=== PATIENT | male | born 1960 | race Caucasian/White ===

== ENCOUNTER 2017-08-06 19:29 | Emergency (ER) | payer SELFPAY ==
[~2017-08-06] VITALS: Ht 190.5 cm; Wt 138.0 kg
[2017-08-06 19:35] VITALS: BP 118/66; PULSE 71; RESP 16; O2SAT 97
[2017-08-06 19:38] VITALS: TEMP 97.6
[2017-08-06] MEDS ORDERED: SODIUM CHLORIDE 0.9% FLUSH 10 ML FLUSH IVF PRN (19:45)
[2017-08-06] MEDS ORDERED: OMEP40CA2 PO (19:46)
[2017-08-06] MEDS ORDERED: MULT1TAB PO (19:46)
[2017-08-06] MEDS ORDERED: FOLI800T PO (19:46)
[2017-08-06] MEDS ORDERED: THIA100T16 PO (19:46)
[2017-08-06] MEDS ORDERED: AMLO5TAB2 PO (19:46)
[2017-08-06] MEDS ORDERED: VITA250T3 PO (19:46)
[2017-08-06] MEDS ORDERED: SODIUM CHLOR 0.9% 1000 ML INJ 1,000 ML IV ONE (20:00)
--- NOTE | 2017-08-06 20:00 | PD ---
HPI Chief Complaint: Syncope/Near-Syncope Time Seen by Provider: 19:43 Travel History International Travel<30 days: No Contact w/Intl Traveler<30days: No Traveled to known affect area: No History of Present Illness HPI While at [place] [employer] [place] with family , apparently patient "passed out" for 5 seconds, witnessed by family, no seizure activity and no postictal. Patient does admit to having a few drinks while he was at the bar with family. Denies any alleviating or aggravating factors. Denies any associated factors such as fever headache photophobia nausea vomiting diarrhea or rash chest pain abdominal pain back pain. PFSH Past Medical History Blood Disorders: No GERD: Yes Hypertension: Yes Tetanus Vaccination: Unknown Influenza Vaccination: No Past Surgical History Thoracic Surgery: Yes (Tumor left lung) Social History Alcohol Use: Yes (Social) Tobacco Use: No Substance Use: No Allergies-Medications (Allergen,Severity, Reaction): Coded Allergies: No Known Allergies (Verified Allergy, Severe, 08/06/17) NKA Uncoded Allergies: nka (Allergy, Unknown, 03/01/03) Reported Meds & Prescriptions Reported Meds & Active Scripts Active Reported Chlorthalidone 25 Mg Tab 25 Mg PO DAILY Montelukast (Montelukast Sodium) 10 Mg Tab 10 Mg PO HS Metoprolol Succinate ER 24 HR (Metoprolol Succinate) 50 Mg Tab 50 Mg PO DAILY Advair Hfa 12 GM Inh (Fluticasone-Salmeterol 12 GM Inh) 230-21 Mcg/Act Aer 2 Puff INH BID Losartan-Hydrochlorothiazide 100-25 Mg Tab 1 Tab PO DAILY Omeprazole 40 Mg Cap 40 Mg PO BID Folic Acid 0.8 Mg Tab 800 Mcg PO DAILY Vitamin B-1 (Thiamine Mononitrate) 100 Mg Tab 100 Mg PO DAILY Vitamin C (Ascorbic Acid) 250 Mg Tab 500 Mg PO DAILY Centrum Silver Adult 50+ (Multiple Vitamins W/ Minerals) 0.4 Mg-300 Mcg-250 Mcg Tab 1 Tab PO DAILY Amlodipine (Amlodipine Besylate) 5 Mg Tab 5 Mg PO DAILY Review of Systems Except as stated in HPI: all other systems reviewed are Neg General / Constitutional: No: Fever Eyes: No: Visual changes HENT: No: Headaches Cardiovascular: No: Chest Pain or Discomfort Respiratory: No: Shortness of Breath Gastrointestinal: No: Abdominal Pain Genitourinary: No: Dysuria Musculoskeletal: No: Pain Skin: No Rash Neurologic: Positive: Syncope Psychiatric: No: Depression Endocrine: No: Polydipsia Hematologic/Lymphatic: No: Easy Bruising Physical Exam Narrative GENERAL: pleasant elderly male, smells of etoh on breath SKIN: Warm and dry. HEAD: Atraumatic. Normocephalic. EYES: Pupils equal and round. No scleral icterus. No injection or drainage. ENT: No nasal bleeding or discharge. Mucous membranes pink and moist. NECK: Trachea midline. No JVD. CARDIOVASCULAR: Regular rate and rhythm. RESPIRATORY: No accessory muscle use. Clear to auscultation. Breath sounds equal bilaterally. GASTROINTESTINAL: Abdomen soft, non-tender, nondistended. MUSCULOSKELETAL: Extremities without clubbing, cyanosis, or edema. No obvious deformities. NEUROLOGICAL: Awake and alert. No obvious cranial nerve deficits. Motor grossly within normal limits. Five out of 5 muscle strength in the arms and legs. Normal speech. PSYCHIATRIC: Appropriate mood and affect; insight and judgment normal. Data Data Last Documented VS Vital Signs Date Time Temp Pulse Resp B/P (MAP) Pulse Ox O2 Delivery O2 Flow Rate FiO2 08/06/17 19:38 97.6 08/06/17 19:35 71 16 118/66 (83) 97 Orders Orders Electrocardiogram (08/06/17 19:43) Complete Blood Count With Diff (08/06/17 19:43) Comprehensive Metabolic Panel (08/06/17 19:43) B-Type Natriuretic Peptide (08/06/17 19:43) Troponin I (08/06/17 19:43) Act Partial Throm Time (Ptt) (08/06/17 19:43) Prothrombin Time / Inr (Pt) (08/06/17 19:43) Urinalysis - C+S If Indicated (08/06/17 19:43) Ecg Monitoring (08/06/17 19:43) Iv Access Insert/Monitor (08/06/17 19:43) Oximetry (08/06/17 19:43) Sodium Chloride 0.9% Flush (Ns Flush) (08/06/17 19:45) Drug Screen, Random Urine (08/06/17 19:43) Alcohol (Ethanol) (08/06/17 19:43) Ct Brain W/O Iv Contrast(Rout) (08/06/17 19:43) Sodium Chlor 0.9% 1000 Ml Inj (Ns 1000 M (08/06/17 20:00) Labs Laboratory Tests Test 08/06/17 19:50 08/06/17 20:15 White Blood Count 6.8 TH/MM3 Red Blood Count 3.99 MIL/MM3 Hemoglobin 12.9 GM/DL Hematocrit 38.5 % Mean Corpuscular Volume 96.5 FL Mean Corpuscular Hemoglobin 32.5 PG Mean Corpuscular Hemoglobin Concent 33.6 % Red Cell Distribution Width 13.4 % Platelet Count 235 TH/MM3 Mean Platelet Volume 8.3 FL Neutrophils (%) (Auto) 54.2 % Lymphocytes (%) (Auto) 30.7 % Monocytes (%) (Auto) 13.0 % Eosinophils (%) (Auto) 1.0 % Basophils (%) (Auto) 1.1 % Neutrophils # (Auto) 3.7 TH/MM3 Lymphocytes # (Auto) 2.1 TH/MM3 Monocytes # (Auto) 0.9 TH/MM3 Eosinophils # (Auto) 0.1 TH/MM3 Basophils # (Auto) 0.1 TH/MM3 CBC Comment DIFF FINAL Differential Comment Prothrombin Time 10.3 SEC Prothromb Time International Ratio 1.0 RATIO Activated Partial Thromboplast Time 19.8 SEC Blood Urea Nitrogen 31 MG/DL Creatinine 1.72 MG/DL Random Glucose 143 MG/DL Total Protein 7.5 GM/DL Albumin 3.7 GM/DL Calcium Level 8.2 MG/DL Alkaline Phosphatase 92 U/L Aspartate Amino Transf (AST/SGOT) 43 U/L Alanine Aminotransferase (ALT/SGPT) 31 U/L Total Bilirubin 0.3 MG/DL Sodium Level 138 MEQ/L Potassium Level 4.0 MEQ/L Chloride Level 99 MEQ/L Carbon Dioxide Level 27.1 MEQ/L Anion Gap 12 MEQ/L Estimat Glomerular Filtration Rate 41 ML/MIN Troponin I LESS THAN 0.02 NG/ML B-Type Natriuretic Peptide 31 PG/ML Ethyl Alcohol Level 311 MG/DL Urine Color YELLOW Urine Turbidity CLEAR Urine pH 6.0 Urine Specific [place] 1.016 Urine Protein 30 mg/dL Urine Glucose (UA) NEG mg/dL Urine Ketones NEG mg/dL Urine Occult Blood NEG Urine Nitrite NEG Urine Bilirubin NEG Urine Urobilinogen LESS THAN 2.0 MG/DL Urine Leukocyte Esterase NEG Urine RBC 1 /hpf Urine WBC 2 /hpf Urine Squamous Epithelial Cells <1 /hpf Urine Hyaline Casts 11 /lpf Urine Mucus FEW /lpf Microscopic Urinalysis Comment CULT NOT INDICATED Urine Opiates Screen NEG Urine Barbiturates Screen NEG Urine Amphetamines Screen NEG Urine Benzodiazepines Screen NEG Urine Cocaine Screen NEG Urine Cannabinoids Screen NEG MDM Medical Decision Making Medical Screen Exam Complete: Yes Emergency Medical Condition: Yes Medical Record Reviewed: Yes Interpretation(s) nsr , 72, baseline motion artifact, no stemi pattern Differential Diagnosis Alcohol intoxication versus vasovagal syncope versus anemia versus electrolyte abnormalities versus intracranial hemorrhage Narrative Course Patient's CBC shows no leukocytosis no anemia and no thrombocytosis or thrombocytopenia. Regulation profile is within normal limits urinalysis is negative for any evidence of UTI. Toxicology is negative for tox screen however the alcohol level was 311. Complete metabolic profile does show a small amount of prerenal azotemia with BUN of 31 and a creatinine of 1.72 and GFR 41. Patient was given 1 L of normal saline by EMS plus another additional liter by me here in the emergency department. First set of cardiac enzymes negative, beta natruretic peptide negative, lipase and albumin within normal limits..... Patient has been discharged to family, advised to hydrate with water or electrolyte drinks, and to avoid alcohol for the immediate time. Diagnosis Primary Impression: vasovagal syncope Additional Impressions: DEHYDRATION Alcohol intoxication Qualified Codes: F10.920 - Alcohol use, unspecified with intoxication, uncomplicated Patient Instructions: Alcohol Intoxication (DC), Dehydration (ED), General Instructions Disposition: 01 DISCHARGE HOME Condition: Stable Sridhar Genao MD Aug 06, 2017 20:00
[2017-08-06] MEDS ORDERED: LOSA100T2 PO (20:01)
[2017-08-06] MEDS ORDERED: ADVA230A INH (20:13)
[2017-08-06] MEDS ORDERED: MONT10TA4 PO (20:13)
[2017-08-06] MEDS ORDERED: METO1TAB9 PO (20:13)
[2017-08-06] MEDS ORDERED: CHLO25TA2 PO (20:13)
--- NOTE | 2017-08-06 20:19 | RADRPT ---
EXAM DATE/TIME: 08/06/2017 20:02 [facility] COMPARISON: No previous studies available for comparison. INDICATIONS : Syncope episode. RADIATION DOSE: 44.91 CTDIvol (mGy) MEDICAL HISTORY : Hypertension. tumor left lung SURGICAL HISTORY : None. ENCOUNTER: Initial ACUITY: 1 day PAIN SCALE: 0/10 LOCATION: cranial TECHNIQUE: Multiple contiguous axial images were obtained of the head. Using automated exposure control and adj ustment of the mA and/or kV according to patient size, radiation dose was kept as low as reasonably a chievable to obtain optimal diagnostic quality images. DICOM format image data is available electro nically for review and comparison. FINDINGS: There is no evidence for intracranial hemorrhage, mass effect, mass lesions, edema, or extra-axial fl uid collections. The visualized bony structures appear intact. The ventricles are normal size for t he patient's age. There are no signs of acute infarction for technique. CONCLUSION: Unremarkable study. Brigette Eastman MD on August 06, 2017 at 20:16 Board Certified Radiologist. This report was verified electronically.
[2017-08-06 20:39] LABS: AUTOMATED NEUTROPHIL # 3.7 TH/MM3 (1.8-7.7); BASOPHIL # 0.1 TH/MM3 (0-0.2); BASOPHIL % 1.1 % (0.0-2.0); EOSINOPHIL # 0.1 TH/MM3 (0-0.4); HEMATOCRIT 38.5 % (39.0-51.0); HEMOGLOBIN 12.9 GM/DL (13.0-17.0); LYMPH % 30.7 % (9.0-44.0); LYMPHOCYTE # 2.1 TH/MM3 (1.0-4.8); MEAN CELL VOLUME 96.5 FL (80.0-100.0); MEAN CORPUSCULAR HEMOGLOBIN 32.5 PG (27.0-34.0); MEAN CORPUSCULAR HGB CONC 33.6 % (32.0-36.0); MEAN PLATELET VOLUME 8.3 FL (7.0-11.0); MONOCYTE # 0.9 TH/MM3 (0-0.9); NEUT % 54.2 % (16.0-70.0); PLATELET COUNT 235 TH/MM3 (150-450); RED BLOOD COUNT 3.99 MIL/MM3 (4.50-5.90); RED CELL DISTRIBUTION WIDTH 13.4 % (11.6-17.2); WHITE BLOOD COUNT 6.8 TH/MM3 (4.0-11.0)
[2017-08-06 20:54] LABS: ALBUMIN 3.7 GM/DL (3.4-5.0); ALT (GPT) 31 U/L (12-78); AST (GOT) 43 U/L (15-37); BICARBONATE 27.1 MEQ/L (21.0-32.0); BLOOD UREA NITROGEN 31 MG/DL (7-18); CALCIUM 8.2 MG/DL (8.5-10.1); CHLORIDE 99 MEQ/L (98-107); CREATININE 1.72 MG/DL (0.60-1.30); GLOMERULAR FILTRATION RATE 41 ML/MIN (>89); GLUCOSE,RANDOM 143 MG/DL (74-106); PROTHROMBIN TIME - PATIENT 10.3 SEC (9.8-11.6); SODIUM (NA) 138 MEQ/L (136-145)
[2017-08-06 20:58] LABS: ALKALINE PHOSPHATASE 92 U/L (45-117); TOTAL BILIRUBIN ADULT 0.3 MG/DL (0.2-1.0); TOTAL PROTEIN 7.5 GM/DL (6.4-8.2); TROPONIN I LESS THAN 0.02 NG/ML (0.02-0.05)
[2017-08-06 21:52] LABS: BILIRUBIN, URINE NEG (NEG); BLOOD, URINE NEG (NEG); GLUCOSE,URINE NEG (NEG); HYALINE CAST, URINE 11 /lpf (RARE); KETONE, URINE NEG (NEG); MUCUS URINE FEW /lpf (OCC); NITRITE,URINE NEG (NEG); SQUAMOUS EPITHELIAL CELL URINE <1 /hpf (0-5); URINE COLOR YELLOW (YELLW/STRAW); URINE LEUKOCYTE ESTERASE NEG (NEG)
[2017-08-06 22:19] VITALS: BP 113/80; PULSE 86; RESP 20; O2SAT 98
--- NOTE | 2017-08-07 14:40 | EKG ---
Date Performed: 08/06/2017 Time Performed: 19:41:08 PTAGE: 56 years EKG: Sinus rhythm INTRAVENTRICULAR CONDUCTION DELAY ABNORMAL ECG PREVIOUS TRACING : 08/11/2002 21.02 Since the prior tracing, there has been no significant reece DOCTOR: José Luis Cabrera Interpretating Date/Time 08/07/2017 14:33:52
== END 2017-08-06 22:27 | disposition home or self-care (01) ==
LOC: NEPC 19:29
DX: R55 Syncope and collapse (principal); E86.0 Dehydration; F10.129 Alcohol abuse with intoxication, unspecified; Y90.8 Blood alcohol level of 240 mg/100 ml or more; R94.31 Abnormal electrocardiogram [ECG] [EKG]; I10 Essential (primary) hypertension; K21.9 Gastro-esophageal reflux disease without esophagitis
CPT/HCPCS: 70450; 80053; 80307; 81001; 83880; 84484; 85025; 85610; 85730; 93005; 96360; 96361; 99285; J7030